=== PATIENT | male | born 1950 | race Caucasian/White ===

== ENCOUNTER → 2017-01-26 | Outpatient (CLI) | payer OTHER | LOC: BMCIMAGING 14:52 | PROVIDERS: ATTEND Family Medicine | DX: R05 Cough (principal); Z87.891 Personal history of nicotine dependence ==

== ENCOUNTER 2018-01-29 01:56 | Inpatient (IN) | payer OTHER ==
[2018-01-29] MEDS ORDERED: NS 1,000 ML IV ONE (02:09)
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
[2018-01-29] MEDS ORDERED: ONDANSETRON 4 MG/2 ML VIAL IVP ONE (02:12)
[2018-01-29] MEDS ORDERED: HYDROmorphONE/DILAUDID 2 MG/ML INJ IVP ONE ×2 (02:12→03:42)
[2018-01-29 02:26] LABS: PLATELET COUNT 251 10^3/uL (150-400)
[2018-01-29 02:35] LABS: INR 1.02 (0.83-1.16); PROTIME(PATIENT) 13.6 SEC (12.0-15.0)
[2018-01-29] MEDS ORDERED: IOPAMIDOL (ISOVUE-300) 100 ML BTL ONE ×2 (03:07→11:46)
[2018-01-29] MEDS ORDERED: ACETAMINOPHEN 325 MG TAB PO PRN (04:12)
[2018-01-29] MEDS ORDERED: LORazepam 2 MG/ML INJ IVP PRN (04:12)
[2018-01-29] MEDS ORDERED: HYDROCODONE/APAP 5/325 TAB PO PRN (04:12)
[2018-01-29] MEDS ORDERED: ONDANSETRON 4 MG/2 ML VIAL IVP PRN ×2 (04:12→15:36)
[2018-01-29] MEDS ORDERED: NS 1,000 ML IV SCH ×3 (04:15→13:15)
[2018-01-29] MEDS ORDERED: LORazepam 2 MG/ML INJ IVP ONE (05:56)
[2018-01-29] MEDS ORDERED: fentaNYL 100 MCG/2 ML INJ IVP ONE (05:56)
--- NOTE | 2018-01-29 07:37 | PDGENHP ---
History and Physical - Chief Complaint Left-sided abdominal pain - History of Present Illness Source-patient provides history appears reliable. His and [id number] at bedside supplement details. EMR was reviewed and case discussed with ED provider. HPI - this is a very pleasant 67-year-old gentleman who is generally in excellent health with a remote history of melanoma the degenerative disc disease in the lumbar spine who presents to the emergency department today with complaints of sudden onset left lower abdominal pain that will come from sleep. Patient describes pain as cramping constant. Nothing made his pain better or worse at home until he came to the emergency department and received a dose of Dilaudid. Patient's has also noted a little bit of abdominal distension. He has not had any drastic weight loss but reports that over the last several years he has had on expected weight loss. Patient has not had any decline in appetite or changes in bowel or bladder function. He chronically has increased frequency related to history of BPH and reports that he frequently feels like he does not empty his bladder entirely. Patient notes he had a recent upper respiratory CIS syndrome with rhinorrhea congestion and cough which has been improving. He denies any fevers chills or night sweats. History Information - Allergies/Home Medication List Allergies/Adverse Reactions: No Known Allergies Allergy (Unverified 01/29/18 02:04) Home Medications: NK [No Known Home Meds] 01/29/18 [Last Taken Unknown] I have personally reviewed and updated: family history, medical history, social history, surgical history - Past Medical History Additional medical history: History of melanoma on his back resected 1999. Patient reports he had multiple lymph node biopsies some of which were positive. He did not require treatment with chemotherapy. - Surgical History Additional surgical history: #Right shoulder surgery 2016. #Melanoma resection and lymph node biopsies on the back. #Prostate resection. Patient notes "placement of seeds to shrink vessels" unclear if this was embolization. Patient is not make notation of any history of prostate cancer. - Family History Additional family history: Father- related to colon cancer. Mother history of breast cancer - Social History Smoking Status: Never smoked Alcohol Use: Other (Patient reports drinking several drinks on a daily basis.) Drug Use: Marijuana (Daily use) Additional social history: Patient is and lives with his . 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 Cor status-full. Review of Systems Review of Systems: ROS: 10pt was reviewed & negative except for what was stated in HPI & below Constitutional: Reports: weight loss (Slow steady weight loss over the last several years. ). Denies: chills, fever, malaise EENMT: Reports: nose congestion. Denies: blurred vision, sore throat Cardiac: Reports: no symptoms Respiratory: Reports: cough. Denies: shortness of breath Gastrointestinal: Reports: abdominal pain (See HPI), abdominal distention, nausea. Denies: vomitting, diarrhea Genitourinary: Denies: burning, flank pain, hematuria, incontinence Muscolosketal: Reports: back pain (Chronic low back pain), joint pain Neurological: Reports: headache (Intermittent). Denies: numbness, tingling Hematologic/Lymphatic: Reports: no symptoms Physical Exam Physical Exam: Selected Entries 01/29/18 02:05 Blood Pressure Automatic Method Heart Rate 72 Respiratory 98 H Rate Temperature (C) 36.6 C Blood Pressure 156/101 H Mean Arterial 119 H Pressure (MAP) O2 Delivery Room Air Mode Temperature Oral Source Temp Pulse Resp BP Pulse Ox 36.3 C 72 16 168/89 H 93 01/29/18 06:17 01/29/18 06:17 01/29/18 06:17 01/29/18 04:01 01/29/18 06:17 Constitutional: no apparent distress, uncomfortable, other (NAD. Patient lays quietly in bed. Does occasionally cradle is abdomen. Family bedside.) Eyes: PERRL (Decreased reactivity light bilaterally but symmetric.), anicteric sclera, EOMI, No scleral injection Ears, Nose, Mouth, Throat: dry mucous membranes, other (No nasal discharge), No poor dentition Cardiovascular: regular rate and rhythym, no murmur, rub, or gallop, pulses symmetric bilaterally, No edema Peripheral Pulses: 1+: dorsalis-pedis (R), dorsalis-pedis (L) Respiratory: no respiratory distress, no rales or rhonchi, clear to auscultation , No inspiratory crackles, No respiratory distress Gastrointestinal: normoactive bowel sounds, no palpable masses, tenderness ( Left lower quadrant), distension, No guarding, No rebound Genitourinary: no bladder tenderness, No ricketts in urethra Skin: warm, normal color, no rashes or abrasions Musculoskeletal: full muscle strength (Patient able to sit up independently.), other (Slightly antalgic gait) Neurologic: AAOx3, sensation intact bilaterally, other (Nonfocal exam), No facial droop Psychiatric: interacting appropriately, not anxious, not encephalopathic, thought process linear, other (Thought process content and questions are appropriate.) Lab Data & Imaging Review 01/29/18 02:15 01/29/18 02:15 WBC 11.71 10^3/uL (3.80-9.50) H 01/29/18 02:15 RBC 5.05 10^6/uL (4.40-6.38) 01/29/18 02:15 Hgb 15.0 g/dL (13.7-17.5) 01/29/18 02:15 Hct 44.4 % (40.0-51.0) 01/29/18 02:15 MCV 87.9 fL (81.5-99.8) 01/29/18 02:15 MCH 29.7 pg (27.9-34.1) 01/29/18 02:15 MCHC 33.8 g/dL (32.4-36.7) 01/29/18 02:15 RDW 13.6 % (11.5-15.2) 01/29/18 02:15 Plt Count 251 10^3/uL (150-400) 01/29/18 02:15 MPV 10.8 fL (8.7-11.7) 01/29/18 02:15 Neut % (Auto) 52.4 % (39.3-74.2) 01/29/18 02:15 Lymph % (Auto) 39.7 % (15.0-45.0) 01/29/18 02:15 [place] % (Auto) 6.7 % (4.5-13.0) 01/29/18 02:15 Eos % (Auto) 0.7 % (0.6-7.6) 01/29/18 02:15 Baso % (Auto) 0.3 % (0.3-1.7) 01/29/18 02:15 Nucleat RBC Rel Count 0.0 % (0.0-0.2) 01/29/18 02:15 Absolute Neuts (auto) 6.13 10^3/uL (1.70-6.50) 01/29/18 02:15 Absolute Lymphs (auto) 4.65 10^3/uL (1.00-3.00) H 01/29/18 02:15 Absolute Monos (auto) 0.79 10^3/uL (0.30-0.80) 01/29/18 02:15 Absolute Eos (auto) 0.08 10^3/uL (0.03-0.40) 01/29/18 02:15 Absolute Basos (auto) 0.04 10^3/uL (0.02-0.10) 01/29/18 02:15 Absolute Nucleated RBC 0.00 10^3/uL (0-0.01) 01/29/18 02:15 Immature Gran % 0.2 % (0.0-1.1) 01/29/18 02:15 Immature Gran # 0.02 10^3/uL (0.00-0.10) 01/29/18 02:15 PT 13.6 SEC (12.0-15.0) 01/29/18 02:15 INR 1.02 (0.83-1.16) 01/29/18 02:15 APTT 32.5 SEC (23.0-38.0) 01/29/18 02:15 VBG Lactic Acid 0.9 mmol/L (0.7-2.1) 01/29/18 02:10 Sodium 141 mEq/L (135-145) 01/29/18 02:15 Potassium 4.1 mEq/L (3.3-5.0) 01/29/18 02:15 Chloride 106 mEq/L (97-110) 01/29/18 02:15 Carbon Dioxide 26 mEq/l (22-31) 01/29/18 02:15 Anion Gap 9 mEq/L (8-16) 01/29/18 02:15 BUN 20 mg/dL (7-23) 01/29/18 02:15 Creatinine 1.1 mg/dL (0.7-1.3) 01/29/18 02:15 Estimated GFR > 60 01/29/18 02:15 Glucose 122 mg/dL (70-100) H 01/29/18 02:15 Calcium 9.1 mg/dL (8.5-10.4) 01/29/18 02:15 Total Bilirubin 0.4 mg/dL (0.1-1.4) 01/29/18 02:15 Conjugated Bilirubin 0.1 mg/dL (0.0-0.5) 01/29/18 02:15 Unconjugated Bilirubin 0.3 mg/dL (0.0-1.1) 01/29/18 02:15 AST 29 IU/L (17-59) 01/29/18 02:15 ALT 39 IU/L (21-72) 01/29/18 02:15 Alkaline Phosphatase 103 IU/L (38-126) 01/29/18 02:15 Total Protein 6.3 g/dL (6.3-8.2) 01/29/18 02:15 Albumin 3.7 g/dL (3.5-5.0) 01/29/18 02:15 Lipase 312 IU/L (23-300) H 01/29/18 02:15 Urine Color YELLOW 01/29/18 03:38 Urine Appearance CLEAR 01/29/18 03:38 Urine pH 5.0 (5.0-7.5) 01/29/18 03:38 Ur Specific [place] > 1.035 (1.002-1.030) H 01/29/18 03:38 Urine Protein 1+ (NEGATIVE) H 01/29/18 03:38 Urine Ketones 1+ (NEGATIVE) H 01/29/18 03:38 Urine Blood NEGATIVE (NEGATIVE) 01/29/18 03:38 Urine Nitrate NEGATIVE (NEGATIVE) 01/29/18 03:38 Urine Bilirubin NEGATIVE (NEGATIVE) 01/29/18 03:38 Urine Urobilinogen NEGATIVE EU (0.2-1.0) 01/29/18 03:38 Ur Leukocyte Esterase NEGATIVE (NEGATIVE) 01/29/18 03:38 Urine RBC 3-5 /hpf (0-3) H 01/29/18 03:38 Urine WBC 1-3 /hpf (0-3) 01/29/18 03:38 Ur Epithelial Cells NONE SEEN /lpf (NONE-1+) 01/29/18 03:38 Urine Mucus TRACE /lpf (NONE-1+) 01/29/18 03:38 Urine Glucose NEGATIVE (NEGATIVE) 01/29/18 03:38 Imaging Review: ___ CT Scan of the Abdomen and Pelvis (With Contrast) at 0 312 hours History: Left-sided abdominal pain. Prior history of melanoma. Comparison: None Technique: Axial computed tomographic images of the abdomen and pelvis were obtained with the uneventful intravenous administration of 90 mL Isovue 300 contrast. No oral contrast. Additional delayed phase imaging performed. Dose reduction techniques were utilized. CT Abdomen Findings: Lung bases: Minimal dependent atelectasis of the lung bases. Liver: Multiple diffuse hepatic masses with a right lobe anterior segment 27 x 20 mm metastasis image 19 of series 9 with multiple additional diffuse metastasis throughout the right and left lobes of the liver. Biliary System: No Biliary ductal dilation. Spleen: Normal. Pancreas: Normal. Adrenals: Normal. Kidneys: Left kidney didn't demonstrates delayed function and excretion with hydronephrosis dilated renal pelvis and calyces secondary to a renal pelvis solid mass measuring at least 29 x 14 mm in axial dimension and 30 mm in cephalocaudal dimension, image 103 of series 4 likely representing transitional cell carcinoma with hepatic metastasis. There are also multiple posterior left-sided retroperitoneal nodules on images 77 through 103 of series 4 measuring up to 15 mm likely representing perinephric metastasis. 18 x 20 mm cortical lesion off the posterior lateral cortex of the left kidney image 103 of series 4 may also represent renal cell carcinoma or additional retroperitoneal metastasis. Right kidney demonstrates no hydronephrosis or solid masses. However there are right-sided perinephric nodules also noted on images 116 through 127 of series 4. Abdominal Aorta: Moderate atherosclerotic aorta and iliac arteries without aneurysm. Right-sided aortocaval retroperitoneal lymph node measuring 15 x 13 mm on image 144 series 4 probably representing metastasis. Peritoneal nodule on image 124 series 4 also suspicious for peritoneal carcinomatosis. Additional smaller nodules identified in the mesentery also on images 162 of series 4.. No bowel obstruction or ascites. No pneumoperitoneum. CT Pelvis Findings: No distal ureteral calculi. Prostate is mildly enlarged measuring 50 x 48 mm. Small bilateral hydroceles. Severe degenerative disease lumbar spine L2-L3, L3-L4 and L5-S1 with disk space narrowing and osteophytes. This results in at least moderate to severe central canal stenosis most prominent at L4 -L5. However no definite osseous metastasis. L4-L5 severe bilateral facet arthropathy. Impression: 1. Multiple hepatic metastasis. Possible melanoma metastasis versus transitional cell carcinoma. 2. Left renal pelvis solid mass suspicious for transitional cell carcinoma versus melanoma metastasis near the left renal pelvis resulting in left hydronephrosis. Moderate left hydronephrosis. 3. Multiple bilateral perinephric retroperitoneal nodules, a few para-aortic lymph nodes, and a few mesenteric lymph nodes consistent with additional metastatic adenopathy. 4. Degenerative lumbar spine without definite osseous metastasis. 5. Atherosclerotic aorta without aneurysm. 6. Small bilateral hydroceles Findings and recommendations discussed with Emergency Department physician, Oscar Holguin MD at 0 345 hour, 01/29/2018. Final report concurs with initial preliminary interpretation. Testicular Sonogram Clinical Indications: Hepatic metastasis. Melanoma. Hydroceles on CT. Comparison: CT abdomen and pelvis from today. Technique: Scrotal contents were imaged with the high-resolution transducer. Color and pulsed Doppler/duplex were recorded on each side. Findings: Right testis measures 4.1 x 2.3 x 2.9 CM and left testis measures 3.7 x 2.4 x 3.1 cm . Both testes are homogeneous in echogenicity without intratesticular masses. Duplex/Doppler signals are normal, without evidence of torsion or inflammation. No epididymal enlargement. Right epididymal head benign 1.1 x 1.1 cm simple cyst. Small bilateral hydroceles. Impression: 1. No intratesticular masses. 2. Small bilateral hydroceles. 3. Right epididymal head benign 1.2 cm cyst. Findings and recommendations discussed with Emergency Department physician, Oscar Holguin MD at 0 4:30 hour, 01/29/2018. Final report concurs with initial preliminary interpretation. Dictated By: Joseph Joyce Visualized and Interpreted imaging results: Yes Assessment & Plan Assessment: Pleasant 67-year-old gentleman with the history complaints of sudden onset left lower quadrant abdominal pain #Left renal mass with liver Mets - imaging findings were discussed with patient and his family. Reviewed the concerns for primary urologic versus melanoma related malignancy. Plan for further imaging evaluation with CT contrast head and chest. Further discussion with IR for consideration of liver biopsy of metastatic disease as per day team. Oncology consultation once pathology is available. # left hydronephrosis - due to obstruction from renal mass. Patient may require the consideration for nephrostomy tubes. Renal function at this time is intact. #Abdominal pain (Acute) - secondary to renal obstruction and hydronephrosis. P.r.n. Morphine and Ativan. # elevated blood pressures without history of hypertension - likely contributing factors including pain and stress with recent diagnosis. P.r.n. Metoprolol if still elevated after pain is treated. # remote history of melanoma FEN - IV fluids while patient is NPO for possible biopsy. Electrolytes adequate did not require replacement. PPX - SCDs. Holding anticoagulation in anticipation of procedure. Cor status-full Disposition-patient admitted inpatient status on the medical floor for additional testing, studies and evaluation of metastatic disease.
[2018-01-29] MEDS: METOPROLOL TARTRATE 5 MG/5 ML INJ IVP PRN ×2 (08:45→16:23)
--- NOTE | 2018-01-29 08:48 | PDMN ---
Medical Necessity Medical necessity: MCG M05 Abdominal Pain: 67 y/o with abd pain and distention. Scans show left renal mass with liver Mets - primary urologic versus melanoma related malignancy. Plan for further imaging evaluation with CT contrast head and chest. IR consult for poss liver biopsy of metastatic diseaseconsultation Onc consult pending. Left hydronephrosis - due to obstruction from renal mass. Patient may require nephrostomy tubes. Abdominal pain (Acute) - secondary to renal obstruction and hydronephrosis. IV opioids started. New HTN noted. NPO for now, IV fluids required. Disposition-patient admitted inpatient status for additional testing, studies and evaluation of metastatic disease.
--- NOTE | 2018-01-29 09:15 | HOSPPROG ---
Hospitalist Progress Note Assessment/Plan: 67-year-old male with the h/o melanoma s/p resection in 1999 with positive lymph nodes at that time admitted with left lower quadrant abdominal pain. 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 -IR to perform us guided biopsy of liver mets on Wednesday (as outpt if d/c'd before then or inpt if still here), discussed with Dr. Tomlinson -await pathology, will need oncology consult # left hydronephrosis - due to obstruction from renal mass. Creatinine normal, significant pain. -urology consulted, Dr. Hollins to place ureteral stent today, cont NPO status #Abdominal pain (Acute) - secondary to renal obstruction and hydronephrosis. -pain control with norco, prn dilaudid # elevated blood pressures without history of hypertension - likely hastened by pain -pain control -prn metoprolol # remote history of melanoma - positive lymph nodes at time of resection in 1999 FEN - NPO, IVF's PPX - SCDs. Holding anticoagulation in anticipation of procedure. Cor status-full Disposition- cont inpt Subjective: Pt reports 10/10 pain, this decreased to 4/10 after IV morphine. No fevers/chills. No N/V. No CP or SOB. He is anxious to have ureteral stent placed for comfort. Objective: Vital Signs Temp Pulse Resp BP Pulse Ox 36.3 C 82 19 197/104 H 94 01/29/18 06:17 01/29/18 08:45 01/29/18 08:41 01/29/18 08:45 01/29/18 08:41 01/28/18 01/29/18 01/30/18 05:59 05:59 05:59 Intake Total 1000 Balance 1000 PT 13.6 SEC (12.0-15.0) 01/29/18 02:15 INR 1.02 (0.83-1.16) 01/29/18 02:15 - Physical Exam Constitutional: no apparent distress Eyes: PERRL Ears, Nose, Mouth, Throat: moist mucous membranes Cardiovascular: regular rate and rhythym Respiratory: no respiratory distress Gastrointestinal: normoactive bowel sounds, other (soft, nd, +left sided TTP without r/r/g, +BS, +left CVA tenderness) Skin: warm Musculoskeletal: full muscle strength Neurologic: AAOx3 Psychiatric: interacting appropriately ICD10 Worksheet Patient Problems: Problems Problem Status Onset Abdominal pain Acute
[2018-01-29] MEDS ORDERED: HYDROmorphONE/DILAUDID 1 MG/ML INJ IVP PRN ×2 (09:16→15:36)
[2018-01-29] MEDS ORDERED: HYDROmorphone HCL 0.5 MG/0.5 ML SYR IVP PRN (09:30)
[2018-01-29] MEDS ORDERED: fentaNYL 100 MCG/2 ML INJ IVP PRN ×2 (13:05→16:06)
[2018-01-29] MEDS ORDERED: MEPERIDINE 25 MG/ML SYR IVP PRN (13:05)
[2018-01-29] MEDS ORDERED: HEPARIN 10,000 UNIT/10 ML MDV (1,000 UNIT/ML) IVP PRN (13:05)
[2018-01-29] MEDS ORDERED: PROTAMINE SULFATE 50 MG/5 ML VIAL IVP PRN (13:05)
[2018-01-29] MEDS ORDERED: GLUCAGON HCL 1 MG VIAL IVP PRN (13:05)
[2018-01-29] MEDS ORDERED: FLUMAZENIL 0.5 MG/5 ML MDV IVP PRN (13:05)
[2018-01-29] MEDS ORDERED: MIDAZOLAM 2 MG/2 ML VIAL IVP PRN (13:05)
[2018-01-29] MEDS ORDERED: NALOXONE HCL 0.4 MG/ML INJ IVP PRN ×2 (13:05→15:36)
[2018-01-29] MEDS ORDERED: ALTEPLASE 2 MG VIAL IVP PRN (13:05)
[2018-01-29] MEDS ORDERED: LIDOCAINE 1% 300 MG/30 ML SDV ONE (13:31)
[2018-01-29] MEDS ORDERED: IOPAMIDOL (ISOVUE-M 300) 15 ML VIAL ONE (13:33)
[2018-01-29] MEDS ORDERED: LIDOCAINE 2% JELLY 20 ML (UROJECT) ONE (13:33)
[2018-01-29] MEDS ORDERED: MIDAZOLAM 2 MG/2 ML VIAL IVP ONE (13:48)
--- NOTE | 2018-01-29 13:48 | PDANEPAE ---
ANE History of Present Illness 67 year old for ureteral stent ANE Past Medical History - Pulmonary History Hx Oxygen in Use at Home: No Hx Sleep Apnea: No Sleep Apnea Screening Result - Last Documented: Negative - Endocrine History Hx Diabetes: No - Cancer History Hx Cancer: Yes Cancer History Comment: hx of melenoma ANE Review of Systems Review of systems is: negative Review of Systems: ANE Patient History - Allergies Allergies/Adverse Reactions: No Known Allergies Allergy (Verified 01/29/18 10:37) - Home Medications Home medications: none Home Medications: Diazepam [Valium 5 MG (*)] 5 mg PO DAILY PRN 01/29/18 [Last Taken 01/22/18] Ibuprofen [Motrin (*)] 200 mg PO BID PRN 01/29/18 [Last Taken 01/28/18] Multivitamins [Multivitamin (*)] 1 each PO DAILY 01/29/18 [Last Taken 01/28/18] - NPO status NPO Since - Liquids (Date): 01/29/18 NPO Since - Liquids (Time): 00:00 NPO Since - Solids (Date): 01/29/18 NPO Since - Solids (Time): 00:00 - Anes Hx Anes Hx: no prior problems - Smoking Hx Smoking Status: Never smoked Marijuana use: Yes - Alcohol Use Alcohol Use: Other ANE Labs/Vital Signs - Labs Result Diagrams: 01/29/18 02:15 01/29/18 02:15 - Vital Signs Blood Pressure: 175/93 Heart Rate: 77 Respiratory Rate: 16 O2 Sat (%): 95 Height: 175.26 cm Weight: 79.379 kg
[2018-01-29] MEDS ORDERED: MIDAZOLAM 2 MG/2 ML VIAL ONE (13:51)
--- NOTE | 2018-01-29 14:02 | PDCONSULT ---
Coding Tech Note: [facility] left ureteral obstruction Consult requested by: Dr. Evette Keating HPI 67M presented to ER w left flank pain. Very excruciating. Pain more in the left lower quadrant than flank though. Hx melanoma. No nausea, emesis, blood in urine. CT abd/pel w con obtained and images personally reviewed- left hydronephrosis due to proximal ureteral obstruction. The ureteral obstruction appears to me more from external compression around the renal pelvis although could be from ureteral/pelvic mass, although this his less convincing on CT to me. Liver lesions suggesting metastasis. Retroperitoneal adenopathy. Past Medical History: History of melanoma. Past Surgical History: Denies significant surgical history Social History: Marijuana use, alcohol use. Denies illicit drugs. Family History: Noncontributory ROS REVIEW OF SYSTEMS: 10 Systems were reviewed and negative with the exception of the elements mentioned in the history of present illness. PE AFVSS Gen NAD A*O CV regular Lungs Normal effort Abd soft, NTTP CVA: no left flank tenderness Ext warm Labs UA 3-5RBC no Nit, no leuks A/P Left ureteral obs ?external compression vs internal mass. TO the OR for left RGP, possible left diagnostic URS w bx, left stent. Rocephin abx. Discussed benefits, risks. Risks including bleeding, infection, pain from stent , pain from procedure, injury to urethral, bladder, ureter, surrounding tissues , need for subsequent procedures. He understood and agreed to proceed. Alesha Gaxiola MD [facility]
[2018-01-29] MEDS ORDERED: fentaNYL 100 MCG/2 ML INJ ONE ×2 (14:06→15:33)
[2018-01-29] MEDS ORDERED: PROPOFOL 200 MG/20 ML VIAL ONE (14:07)
--- NOTE | 2018-01-29 15:08 | POSTOPPROG ---
Post Op Note Date of Operation: 01/29/18 Surgeon: Alesha Gaxiola Anesthesiologist: Warm Anesthesia: LMA Pre-op Diagnosis: left ureteral obstruction, hydro, pain, possible renal pelvis mass Post-op Diagnosis: left ureteral obstruction, hydro, pain, NO renal/ureteral mass Indication: left hydro, pain Procedure: cysto, BLE RGP, L stent, intraoperative fluor Findings: left ureteral obs, NO filling defects on RGP Inf/Abcess present in the surg proc area at time of surgery?: No Depth: Organ Space () EBL: Minimal Complications: None, pt tolerated procedure well
[2018-01-29] MEDS: fentaNYL 100 MCG/2 ML INJ IVP PRN ×2 (15:35→16:01)
--- NOTE | 2018-01-29 15:35 | ASMTCMCOM ---
CM Note CM Note Notes: Pt wa admitted with L ureteral obstruction. He is s/p a cystoscopy. He lives with his in [place]. Anticipate d/c with no CM needs but will continue to follow for any change in needs. D/C plan: Anticipate home independent Date Signed: 01/29/2018 03:34 PM Electronically Signed By:LUIS Fulton
[2018-01-29] MEDS ORDERED: PROMETHAZINE HCL 25 MG/ML INJ IVP PRN (15:36)
--- NOTE | 2018-01-29 15:38 | POSTANESTH ---
Post Anesthetic Evaluation Cardiovascular Status: Normal, Stable, Other, See Comment Respiratory Status: Other, See Comment Level of Consciousness/Mental Status: Can Participate in Eval Pain Control: Adequate, Prn Tx Ordered Nausea/Vomiting Control: Adequate, Prn Tx Ordered Complications Possibly Related to Anesthesia: None Noted
[2018-01-29] MEDS ORDERED: HYDROmorphONE/DILAUDID 2 MG/ML INJ ONE (16:04)
[2018-01-29] MEDS ORDERED: METOPROLOL TARTRATE 5 MG/5 ML INJ ONE ×2 (16:17→16:39)
[2018-01-29] MEDS ORDERED: HYDROmorphONE/DILAUDID 2 MG/ML INJ IVP PRN (16:30)
[2018-01-29] MEDS ORDERED: hydrALAZINE 20 MG/ML VIAL IVP PRN (16:44)
[2018-01-29] MEDS ORDERED: METOPROLOL TARTRATE 5 MG/5 ML INJ IVP ONE (16:45)
[2018-01-29] MEDS ORDERED: hydrALAZINE 25 MG TAB PO PRN (16:55)
[2018-01-29] MEDS ORDERED: LABETALOL HCL 5 MG/ML 20 ML MDV IVP PRN (16:56)
--- NOTE | 2018-01-29 17:29 | GOP ---
DATE OF OPERATION: 01/29/2018 SURGEON: Alesha Gaxiola MD ANESTHESIA: LMA. ANESTHESIOLOGIST: Dr. Aguilar. PREOPERATIVE DIAGNOSIS: Left ureteral obstruction, hydronephrosis, pain, and possible left renal pelvis mass. POSTOPERATIVE DIAGNOSIS: Left ureteral obstruction, hydronephrosis, pain, no renal or ureteral mass. PROCEDURE PERFORMED: Cystoscopy, bilateral retrograde pyelogram, left ureteral stent placement, intraoperative fluoroscopy. FINDINGS: Left ureteral obstruction on retrograde pyelogram with hydronephrotic left renal pelvis and collecting system but no filling defects. Thus, no renal pelvis mass was seen. ESTIMATED BLOOD LOSS: Minimal. INDICATIONS: Left hydronephrosis and pain. DESCRIPTION OF PROCEDURE: The patient was taken back to the cystoscopy suite and placed on the cystoscopy table in a supine position. General anesthesia induced without complication. Time-out performed and core measures satisfied including placement of a Gaurav Hugger, SCDs, and administration of 2 g of Rocephin. He was brought to the end of the table and placed in a dorsal lithotomy position. All pressure points padded. Genitalia draped and prepped in the standard surgical fashion with Betadine. A rigid cystoscope easily cannulated the urethral meatus and was advanced atraumatically into the bladder. Leiva cystoscopy was performed. The right and left ureteral orifices were in their expected anatomical position. There were no bladder abnormalities. No lesions, cellules, trabeculations, masses, or concerns in the bladder. He did have a small prominent central zone of his prostate. The left ureteral orifice was identified, and using a cone-tipped catheter, retrograde pyelogram performed. The distal and mid ureter were normal caliber, and there was a pencil-thin caliber of ureter proximally where the obstruction was seen that led into hydronephrosis. This hydronephrosis was in the renal pelvis and in the calices. There was absolutely no filling defect in the left upper collecting system. I took several pictures and saved these for the system. The obstruction of this ureter is external compression from either mass or lymph nodes, perirenal lymph nodes. I at this point did not feel the need to do any biopsy on the left side, again as my retrograde confirmed external compression causing obstruction. I did remove that cone tip from the distal end of the ureter and then looked at the right ureter and did a retrograde on the right, and that right-sided collecting system was completely normal with a delicate ureter all the way and delicate renal pelvis and calices that were sharp. At this point, I then refocused my attention on the left collecting system. I advanced a wire into the left ureteral orifice up in the left collecting system and placed a 6-Tajik multivariable stent without difficulty. There was a curl in the left collecting system as well as a nice curl in the bladder. Of note, on that retrograde pyelogram, I will add that the renal pelvis did not drain, and there was still contrast in it from the earlier CT scan. At this point, his bladder was drained. The scope was removed , and lidocaine jelly was placed per urethra. He was awakened from anesthesia and transferred to PACU in good condition. COMPLICATIONS: None. The patient presented to the emergency department early this morning with left- sided flank pain. He had a CT scan demonstrating left proximal ureteral obstruction with left hydronephrosis. The CT appeared to me to have external compression from a mass. He also had multiple retroperitoneal lymphadenopathy as well as liver lesions suspicious for metastatic disease. I did not feel that the renal pelvis had appeared to have tumor in it, but the radiologist read it as possible renal pelvis tumor. Thus, I decided to bring him back to the operating room today for bilateral retrograde pyelograms and evaluation of whether there is a mass there and possible biopsy. I also would place a stent, given the obstruction and hydronephrosis. He does have a history of melanoma. He is a past smoker. I went over the rationale, risks, and benefits of the procedure, and he agreed to proceed. /[id number]/MODL MTDD
[2018-01-29] MEDS ORDERED: LORazepam 1 MG TAB PO ONE (20:05)
[2018-01-30] MEDS ORDERED: IOPAMIDOL (ISOVUE-300) 100 ML BTL ONE (08:07)
[2018-01-30 09:13] VITALS: BP 167/91
--- NOTE | 2018-01-30 10:08 | ASMTLACE ---
LACE Length of stay for Answers: 1 day current admission Acuity / Level of Answers: Yes Care: Did the patient have an inpatient admission? Comorbidities - select Answers: Other Notes: hx melanoma all that apply # of Emergency department Answers: 1-2 visits in the last 6 months Score: 6 Date Signed: 01/30/2018 10:08 AM Electronically Signed By:Denisse Alvarez RN
--- NOTE | 2018-01-30 10:16 | ASMTCMCOM ---
CM Note CM Note Notes: Chart reviewed for discharge planning needs, 67 year old male admitted via ED with c/o flank pain. He is s/p ureteral stenting. He has been cleared by hospital medicine to discharge today and is to return for outpatient liver biopsy. No needs identified at this time. CM available should needs arise. Plan: Home independentley with family. Date Signed: 01/30/2018 10:15 AM Electronically Signed By:Denisse Alvarez RN
--- NOTE | 2018-01-30 13:57 | GDS ---
DISCHARGE DIAGNOSES: 1. Left renal pelvis mass with evidence of liver metastases. 2. Left hydronephrosis, secondary to obstruction, status post ureteral stent placement. 3. Hypertension. 4. History of melanoma resected in 1999. 5. Pulmonary nodules suspicious for metastatic disease. 6. Suspected left adrenal metastatic lesion. 7. Coronary artery disease by CT scan in the left anterior descending and right coronary artery wall floor. CONSULTANTS: Dr. Alesha Gaxiola, Urology. HISTORY OF PRESENT ILLNESS: For of details, please see history and physical dated January 29, 2018 . In brief, the patient is a 67-year-old male with a history of a remote melanoma excised in 1999, a t which time he apparently had positive lymph nodes. He did not receive chemotherapy at that time. He presented to the emergency department with left-sided abdominal pain and CT of his abdomen pelvis revealed left renal pelvis mass suspicious for transitional cell carcinoma versus melanoma with evide nce of metastatic disease in the liver with evidence of multiple hepatic metastases. In addition, th ere are multiple bilateral perinephric retroperitoneal nodules and a few mesenteric lymph nodes dennis rning for metastatic adenopathy. An atherosclerotic aorta without aneurysm is noted, as well as dege nerative lumbar spine, small bilateral hydroceles. He was admitted to the hospital for pain control and further workup. HOSPITAL COURSE: Patient was admitted to the med/surgical unit. He underwent ureteral stent placeme nt with significant improvement in his pain and relief of his hydronephrosis. The case was discussed with Interventional Radiology, planning for a hepatic biopsy of what appear to be multiple hepatic m etastases. This will be performed on Wednesday as an outpatient. The patient is aware he should be n.p .o. and the instructional technologist will communicate with him Wednesday morning regarding time of the pr ocedure. He did also undergo head CT and chest CT. His head CT was negative for metastases. His est CT did show a couple of nonspecific subpleural noncalcified nodules seen on the right, which coul d be metastatic in etiology. In addition, there is suspected left adrenal metastatic involvement wit h right and left perinephric nodularity and left upper quadrant nodularity, as well as widespread hep atic metastatic disease, nonspecific mild right hilar and subcarinal lymph node prominence, and bilat eral areas of discoid subsegmental atelectasis versus linear. There is also noted atherosclerotic ca lcification of the left anterior descending and RCA and outpatient followup is recommended. The patient did have significantly elevated blood pressures as high as 212/109 postprocedure. He req uired IV beta blockers and p.r.n. hydralazine doses. He was then started on oral Norvasc and his blo od pressures have improved. He will be discharged on a low dose of oral Norvasc with close attention to his blood pressure. It is suspected that pain and anxiety are contributory factors to his hypert ension. He understands that a tissue diagnosis is needed and he will arrange a followup appointment with Dr. Bai in 1 week to review pathology and treatment options. Dr. Bai was his oncologist for his melanoma care back in 1999. DISPOSITION: Patient is discharged home in stable condition. FOLLOWUP: 1. Dr. Claudia Tomlinson interventional Radiology, Wednesday, January 31 for hepatic biopsy. 2. Dr. Stu Bai, Oncology, for followup on pathology and treatment options. 3. Dr. Carol Morris, primary care. DISCHARGE MEDICATIONS: Please see [facility] for completed outpatient medication list. New medication s on discharge, include Norvasc 2.5 mg p.o. daily #30 no refills, [place] 5/325 mg 1-2 tablets p.o. q.4 hours p.r.n. #30 no refills, lorazepam 0.5 mg p.o. q.h.s. p.r.n. #20 no refills. He will continue a ll other outpatient medications as previously prescribed. We discussed that he will discontinue his Valium, which is not a regular medication. /[id number]/MODL
== END 2018-01-30 10:58 | disposition home or self-care (01) | DRG 687 ==
LOC: OBSVTOIN 04:15 → F1N 06:11
PROVIDERS: ADMIT Family Medicine; ATTEND Family Medicine
PROC: 0T774DZ Dilation of Left Ureter with Intraluminal Device, Percutaneous Endoscopic Approach (ICD-10-PCS; principal; 2018-01-29 13:30)
DX: C64.2 Malignant neoplasm of left kidney, except renal pelvis (principal); C78.7 Secondary malignant neoplasm of liver and intrahepatic bile duct; C79.72 Secondary malignant neoplasm of left adrenal gland; C78.00 Secondary malignant neoplasm of unspecified lung; N13.1 Hydronephrosis with ureteral stricture, not elsewhere classified; I10 Essential (primary) hypertension; I25.10 Atherosclerotic heart disease of native coronary artery without angina pectoris; I70.0 Atherosclerosis of aorta; M51.36 Other intervertebral disc degeneration, lumbar region; N43.3 Hydrocele, unspecified; Z85.820 Personal history of malignant melanoma of skin
CPT/HCPCS: 96374; C1758; C1769; C2625; J0696; J1170; J2060; J2250; J2270; J2405; J2704; J3010; Q9967

== ENCOUNTER 2018-01-31 13:06 | Outpatient (CLI) | payer OTHER ==
[2018-01-31] MEDS ORDERED: LIDOCAINE 1% 300 MG/30 ML SDV ONE (13:52)
[2018-01-31] MEDS ORDERED: ALTEPLASE 2 MG VIAL IVP PRN (14:27)
[2018-01-31] MEDS ORDERED: NALOXONE HCL 0.4 MG/ML INJ IVP PRN (14:27)
[2018-01-31] MEDS ORDERED: FLUMAZENIL 0.5 MG/5 ML MDV IVP PRN (14:27)
[2018-01-31] MEDS ORDERED: MIDAZOLAM 2 MG/2 ML VIAL IVP PRN (14:27)
[2018-01-31] MEDS ORDERED: fentaNYL 100 MCG/2 ML INJ IVP PRN (14:27)
[2018-01-31] MEDS ORDERED: NS 1,000 ML IV SCH (14:30)
[2018-01-31] MEDS ORDERED: MIDAZOLAM 2 MG/2 ML VIAL ONE ×2 (14:30→14:31)
[2018-01-31] MEDS ORDERED: fentaNYL 100 MCG/2 ML INJ ONE (14:30)
[2018-01-31] MEDS ORDERED: oxyCODONE IR 5 MG TAB PO PRN (16:17)
[2018-01-31] MEDS ORDERED: ONDANSETRON 4 MG/2 ML VIAL IVP PRN (16:17)
[2018-01-31 19:18] VITALS: BP 140/75
== END 2018-01-31 19:20 | disposition home or self-care (01) ==
LOC: FIMAGING 13:06
PROVIDERS: ATTEND Internal Medicine Hematology & Oncology
PROC: 0FB03ZX Excision of Liver, Percutaneous Approach, Diagnostic (ICD-10-PCS; principal; 2018-01-31)
DX: C78.7 Secondary malignant neoplasm of liver and intrahepatic bile duct (principal); Z85.820 Personal history of malignant melanoma of skin
CPT/HCPCS: 47000; 76942; 88307; 88333; 88341; 88342; J2250; J3010

== ENCOUNTER → 2018-02-18 | Outpatient (CLI) | payer OTHER ==
[~2018-02-18] MED LIST: GADOBUTROL 10 ML VIAL IVP ONE
== END ==
LOC: FIMAGING 10:48
PROVIDERS: ATTEND Internal Medicine Hematology & Oncology
DX: Z12.89 Encounter for screening for malignant neoplasm of other sites (principal); C43.60 Malignant melanoma of unspecified upper limb, including shoulder
CPT/HCPCS: 70553; A9585

== ENCOUNTER → 2018-02-23 | Outpatient (CLI) | payer OTHER | LOC: BHFA 14:00 | PROVIDERS: ATTEND Internal Medicine Cardiovascular Disease | DX: Z51.11 Encounter for antineoplastic chemotherapy (principal) ==

== ENCOUNTER → 2018-02-24 | Outpatient (CLI) | payer OTHER ==
[~2018-02-24] MED LIST changes: -GADOBUTROL 10 ML VIAL IVP ONE; +IOPAMIDOL (ISOVUE-300) 100 ML BTL ONE
== END ==
LOC: FIMAGING 10:03
PROVIDERS: ATTEND Internal Medicine Hematology & Oncology
DX: C43.9 Malignant melanoma of skin, unspecified (principal)
CPT/HCPCS: 70491; Q9967

== ENCOUNTER 2018-04-28 12:59 | Observation (INO) | payer OTHER ==
[2018-04-28] MEDS ORDERED: LIDOCAINE 2% JELLY 20 ML (UROJECT) ONE (14:11)
[2018-04-28] MEDS ORDERED: OPIUM/BELLADONNA ALKALO SUPP PR ONE (14:12)
[2018-04-28] MEDS ORDERED: IOPAMIDOL (ISOVUE-M 300) 15 ML VIAL ONE (14:12)
[2018-04-28] MEDS ORDERED: MIDAZOLAM 2 MG/2 ML VIAL ONE (14:28)
[2018-04-28] MEDS ORDERED: PROPOFOL 200 MG/20 ML VIAL ONE ×3 (14:30→16:34)
[2018-04-28] MEDS ORDERED: fentaNYL 100 MCG/2 ML INJ ONE ×4 (14:30→18:57)
[2018-04-28] MEDS ORDERED: MIDAZOLAM 2 MG/2 ML VIAL IVP ONE (14:33)
[2018-04-28] MEDS ORDERED: ceFAZolin 2 GM in D5W 100 ML IV ONE (14:34)
[2018-04-28] MEDS ORDERED: OPIUM/BELLADONNA ALKALO SUPP PR PRN (14:34)
--- NOTE | 2018-04-28 14:35 | PDANEPAE ---
ANE History of Present Illness ureteral stent ANE Past Medical History - Cardiovascular History Hx Hypertension: Yes Hx Arrhythmias: No Hx Chest Pain: No Hx Coronary Artery / Peripheral Vascular Disease: No Hx CHF / Valvular Disease: No Hx Palpitations: No - Pulmonary History Hx COPD: No Hx Asthma/Reactive Airway Disease: No Hx Recent Upper Respiratory Infection: No Hx Oxygen in Use at Home: No Hx Sleep Apnea: No - Endocrine History Hx Diabetes: No Obesity: no - Cancer History Hx Cancer: Yes Cancer History Comment: hx of melenoma - Chronic Pain History Chronic Pain: No - Surgical History Prior Surgeries: ureteral stents 01/29/18 ANE Review of Systems Review of systems is: negative Review of Systems: - Exercise capacity Exercise capacity: >=4 METS ANE Patient History - Allergies Allergies/Adverse Reactions: No Known Allergies Allergy (Verified 01/29/18 10:37) - Home Medications Home medications: home medication list seen and reviewed Home Medications: Ibuprofen [Motrin (*)] 200 mg PO BID PRN 01/29/18 [Last Taken 1 Day Ago ~] Multivitamins [Multivitamin (*)] 1 each PO DAILY 01/29/18 [Last Taken 04/28/18] - NPO status NPO Since - Liquids (Date): 04/28/18 NPO Since - Liquids (Time): 12:30 NPO Since - Solids (Date): 04/27/18 NPO Since - Solids (Time): 21:00 - Anes Hx Anes Hx: no prior problems - Smoking Hx Smoking Status: Never smoked ANE Labs/Vital Signs - Vital Signs Blood Pressure: 130/87 Heart Rate: 66 Respiratory Rate: 14 O2 Sat (%): 96 Height: 175.26 cm Weight: 63.503 kg ANE Physical Exam - Airway Neck exam: FROM Mallampati Score: Class 2 Mouth exam: normal dental/mouth exam - Pulmonary Pulmonary: no respiratory distress - Cardiovascular Cardiovascular: regular rate and rhythym - ASA Status ASA Status: II ANE Anesthesia Plan Anesthesia Plan: GA w LMA
--- NOTE | 2018-04-28 14:35 | POSTANESTH ---
Post Anesthetic Evaluation Cardiovascular Status: Normal, Stable Respiratory Status: Normal, Stable Level of Consciousness/Mental Status: Can Participate in Eval, Mildly Sleepy, Arousable Pain Control: Adequate, Prn Tx Ordered Nausea/Vomiting Control: Adequate, Prn Tx Ordered Complications Possibly Related to Anesthesia: None Noted
--- NOTE | 2018-04-28 14:35 | PDHPUP ---
History & Physical Update H&P update statement: This history and physical update is based on an assessment of the patient which was completed after admission or registration (within 24 hours), but prior to the surgery/procedure. H&P update: H&P reviewed & patient examined, no change in patient's condition since H&P completed
[2018-04-28] MEDS ORDERED: ceFAZolin 2 GM/DEXTROSE 100 ML IV ONE (15:00)
--- NOTE | 2018-04-28 16:57 | POSTOPPROG ---
Post Op Note Date of Operation: 04/28/18 Surgeon: Alesha Gaxiola Press Cutter: Oscar Soriano Anesthesia: LMA Pre-op Diagnosis: left hydro managed w stent, met melanoma Post-op Diagnosis: same Indication: left hydro, met melanoma,stent exchange Procedure: cysto,diag ureteroscopy, intra fluoro Findings: unable to remove stent, stent either knoted at renal pelvis or encrusted Inf/Abcess present in the surg proc area at time of surgery?: No EBL: Minimal Complications: None, patient tolerated procedure well Specimen(s): None
[2018-04-28] MEDS ORDERED: IOPAMIDOL (ISOVUE-300) 100 ML BTL ONE (18:18)
--- NOTE | 2018-04-28 18:21 | PDRADPRE ---
Radiology History & Physical Indication for procedure: cancer (Encrusted left JJ ureteral stent unable to be retrieved without risk of ureteral disruption. Consent obtained from for PNCU placement and JJ stent retreival. ) Home medications: Ibuprofen [Motrin (*)] 200 mg PO BID PRN 01/29/18 [Last Taken 1 Day Ago ~] Multivitamins [Multivitamin (*)] 1 each PO DAILY 01/29/18 [Last Taken 04/28/18] Allergies/Adverse Reactions: No Known Allergies Allergy (Verified 01/29/18 10:37) Mental status: other (Anesthesia) Heart exam: regular rate and rhythm Lungs exam: clear to auscultation
--- NOTE | 2018-04-28 18:22 | PDRADPN ---
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 Successful snare of ureteral stent and placement of PNCU. Inf/Abcess present in the surg proc area at time of surgery?: No
[2018-04-28] MEDS ORDERED: PROMETHAZINE HCL 25 MG/ML INJ IVP PRN (18:47)
[2018-04-28] MEDS ORDERED: ALBUTEROL 3 ML DEYVIAL IH PRN (18:47)
[2018-04-28] MEDS ORDERED: NALOXONE HCL 0.4 MG/ML INJ IVP PRN (18:47)
[2018-04-28] MEDS ORDERED: HYDROmorphONE/DILAUDID 2 MG/ML INJ IVP PRN (18:47)
[2018-04-28] MEDS ORDERED: ACETAMINOPHEN 500 MG TAB PO PRN (18:47)
[2018-04-28] MEDS ORDERED: METOCLOPRAMIDE 10 MG/2 ML VIAL IVP PRN (18:47)
[2018-04-28] MEDS ORDERED: HYDROCODONE/APAP 5/325 TAB PO PRN (18:47)
[2018-04-28] MEDS ORDERED: oxyCODONE IR 5 MG TAB PO PRN (18:47)
[2018-04-28] MEDS ORDERED: LR 500 ML IV PRN (18:47)
[2018-04-28] MEDS: fentaNYL 100 MCG/2 ML INJ IVP PRN ×2 (18:59→19:47)
[2018-04-28] MEDS ORDERED: MEPERIDINE 25 MG/0.5 ML AMP ONE ×2 (19:02→19:10)
[2018-04-28] MEDS: MEPERIDINE 25 MG/0.5 ML AMP IVP PRN ×2 (19:04→19:18)
[2018-04-28] MEDS ORDERED: DIAZEPAM 5 MG/ML 1 ML SYR ONE (19:11)
[2018-04-28] MEDS: DIAZEPAM 5 MG/ML 1 ML SYR IVP PRN ×2 (19:14→19:21)
[2018-04-28] MEDS ORDERED: LABETALOL HCL 5 MG/ML 20 ML MDV ONE (20:43)
[2018-04-28] MEDS ORDERED: LABETALOL HCL 5 MG/ML 20 ML MDV IVP PRN (20:47)
[2018-04-28] MEDS ORDERED: HYDROmorphONE/DILAUDID 1 MG/ML INJ IVP PRN (21:18)
[2018-04-28] MEDS ORDERED: ONDANSETRON 4 MG/2 ML VIAL IVP PRN (21:18)
[2018-04-28] MEDS ORDERED: D5W 1/2 NS 1,000 ML IV SCH (21:30)
[2018-04-28] MEDS: CEPHALEXIN 500 MG CAP PO SCH (23:05)
[2018-04-28] MEDS: SENNOSIDES/DOCUSATE SODIUM TAB PO SCH (23:06)
[2018-04-29] MEDS: HYDROCODONE/APAP 5/325 TAB PO PRN ×2 (00:38→06:02)
[2018-04-29] MEDS: CEPHALEXIN 500 MG CAP PO SCH (05:40)
--- NOTE | 2018-04-29 08:28 | GOP ---
DATE OF OPERATION: 04/28/2018 SURGEON: Alesha Gaxiola MD SENIOR PROCUREMENT SPECIALIST: Oscar Soriano MD. ANESTHESIA: LMA. PREOPERATIVE DIAGNOSIS: Left hydronephrosis secondary to external ureteral compression from metastat ic melanoma, hydronephrosis managed with a stent. POSTOPERATIVE DIAGNOSIS: 1. Left hydronephrosis secondary to external ureteral compression from metastatic melanoma, hydronep hrosis managed with a stent. 2. Encrusted stent. PROCEDURE PERFORMED: Cystoscopy, diagnostic ureteroscopy, and intraoperative fluoroscopy. FINDINGS: An encrusted stent, unable to remove the stent due to either a knotted stent in the renal pelvis or encrusted stent that unable to be extracted retrograde. SPECIMENS: None. ESTIMATED BLOOD LOSS: Minimal. INDICATIONS: Left hydronephrosis from external ureteral compression due to metastatic melanoma and l arge lymph nodes and need for stent exchange. This is a patient of mine whom I placed a left-sided ureteral stent back in late January for left-s ided hydronephrosis secondary to enlarged periaortic and renal lymph nodes causing compression on the left proximal ureter leading to the hydronephrosis. He presents today for stent exchange. We discu ssed the benefits of stent exchange as he still does have hydronephrosis seen on a CT scan at [facility] yesterday. I discussed with him, his , and his sister that stent exchanges usually are uneventful, but there are times when the stent is encrusted and unable to be removed due to encrustations. I also discussed that the risks include bleeding, infection, pain, injury to the urethra, the bladder, or the left ureter, as I said inability to remove the stents, need for percutan eous nephrostomy tube if I was unable to remove the stent, and need for subsequent procedures. He un derstood these risks and agreed to proceed. DESCRIPTION OF PROCEDURE: The patient was taken back to the cystoscopy suite, placed on the cystosco py table in the supine position. General anesthesia induced without complication. Time-out performe d, and core measures were satisfied including placement of a Gaurav Hugger, SCDs and administration of Ancef antibiotic. He was brought to the end of the table, placed in dorsal lithotomy position. All pressure points padded. Genitalia draped and prepped in the standard surgical fashion with Betadine. A rigid cystoscope easily cannulated the urethral meatus and was advanced atraumatically into the b ladder. The stent was visualized with the scope. It did appear encrusted, and I then advanced a rig id grasper through the cystoscope to the level of the stent and began to externalize the distal end o f the stent. I was able to externalize it, the distal end of the stent at the penile meatus. I then looked at the lumen of the stent and attempted to pass a wire through the stent, but the lumen of th e stent was encrusted, and I was unable to pass a wire. That was with a 0.035 Glidewire. I then exc hanged the wire out for an Amplatz superstiff wire and still was unable to advance the wire through t he lumen of the stent. At this point, I then kept this stent externalized distally at the urethral m eatus, and I advanced the cystoscope back into the bladder and placed a superstiff wire alongside the stent with fluoroscopic and cystoscopic guidance, and this wire advanced easily up into the left col lecting system. I now then removed my scope leaving the wire in place. Now I had a safety wire in p samia for further assistance. I then readvanced the cystoscope back into the bladder, and then attemp lila to remove the stent, knowing that I had a safety wire securing my access already out, and the brii nt would not move out. I did this under fluoroscopy, and I saw just the ureteropelvic junction being pulled upon, but the stent not moving down as it normally would into the ureter. I looked at the st ent up in the renal pelvis on fluoroscopy, and it looked like it either had a knot in it or it was cu rled upon itself or possibly just severely encrusted leaving it unable to straighten and pull out of the left renal pelvis. So at this point, I knew I had an encrusted stent proximally as well as dista lly, which I could visually see in the bladder, so I called in the laser and felt that I would go eula ngside the stent with a rigid scope and further evaluate the ureteropelvic junction in this manner, a s I did not think I would be again to get an access sheath up to use a flexible scope at this point. I placed a small 12-Tong[place] Guevara catheter to decompress the bladder, and then I was able to advance a rigid ureteroscope through the urethral meatus into the bladder into the left collecting system, an d I advanced it as far as I could go, but the semi-rigid would not advanced far enough for me to eval uate the renal pelvis. So at this point, I knew I would have to do a flexible scope, so I removed th e semi-rigid, then I placed another 0.035 Glidewire, and then attempted to advance the flexible scope over wire again with continued decompression of the bladder with the Guevara catheter. I was able to get the flexible ureteroscope over the wire about to the mid ureter, at which point, I was unable to advance it any further. I was unsure if this was because the stent was encrusted at this point, the scope was not able to advance alongside the stent, but further forcing the scope was not in my mind a dvisable. At this point, I did have my partner Dr. Oscar Soriano in the hospital, and I did scrub out, call jacqueline hair, and ask him to come in and evaluate the situation. He did come in, attempted to do similar to whmarky t I did, which was advanced a flexible scope into the left collecting system, and he also had the jayden e problem with obstruction of advancing about the mid ureter. At this point, we both felt that we we re going to be unable to get our scope up to evaluate the ureteropelvic junction, and to do any furth er treatment to remove the stent at this point, and we would call Interventional Radiology for assist ance in removing the stent antegrade. So at this point, I had a safety wire up, and it was an Amplat z superstiff. I kept this up in the left collecting system. I emptied his bladder. I secured the w flaca externally onto his right thigh with some tape in case Interventional Radiology would like this, and I did go over and talked to Dr. Ben Brewer of IR, told him the situation, and he said he wou ld be happy to take the patient at this moment considering he was still under anesthesia, and see fatmata t he could do in terms of removing the stent and placing either a nephrostomy or nephroureteral stent or an antegrade stent. At this point, the patient was still asleep, he was taken out of lithotomy, the wire was still secure d in place, and he was brought over to Interventional Radiology for further management of that stent that was not able to be removed. The patient did well during the entire procedure. Please see Dr. Livia Brewer's note for further description of his IR procedure. COMPLICATIONS: None. The patient tolerated the procedure well specimens. /[id number]/MODL
[2018-04-29] MEDS: SENNOSIDES/DOCUSATE SODIUM TAB PO SCH (09:00)
[2018-04-29 11:13] VITALS: BP 90/65
== END 2018-04-29 12:32 | disposition home or self-care (01) ==
LOC: FSGY 12:59 → F3E 20:15
PROVIDERS: ADMIT Urology; ATTEND Urology
DX: N13.1 Hydronephrosis with ureteral stricture, not elsewhere classified (principal); C79.9 Secondary malignant neoplasm of unspecified site; C43.9 Malignant melanoma of skin, unspecified
CPT/HCPCS: 50435; 52315; 76001; C1729; C1758; C1769; C1773; C1894; J0690; J1170; J1644; J2175; J2250; J2704; J3010; J3360; Q9967

== ENCOUNTER 2018-05-13 08:44 | Emergency (ER) | payer OTHER ==
[2018-05-13 14:27] VITALS: BP 149/104
--- NOTE | 2018-05-13 14:27 | EDPHY ---
H & P Stated Complaint: Nephrostomy tube may ot be draining properly, snagged last night & leaking Time Seen by Provider: 05/13/18 09:19 HPI/ROS: CHIEF COMPLAINT: Nephroureteral tube not draining HISTORY OF PRESENT ILLNESS: This is a 67-year-old male with a remote history of melanoma who was found to have a tumor encompassing his left ureter in mid January of this year. At that time a ureteral stent was placed. This month, April, an unsuccessful attempt was made to remove the stent, requiring removal via Interventional Radiology. On April 28 the existing ureteral stent was removed and a percutaneous nephroureteral catheter was placed. He had been doing well with this catheter until last night when he caught the catheter tubing on a door knob and pulled it, causing immediate pain at the entry site. He noted blood in the drainage bag initially but had no further output during the night. He has had some drainage on the dressing overlying the catheter's entry site. He has continued to urinate as before. He has not had fever and does not otherwise feel ill. He is undergoing treatment for metastatic melanoma REVIEW OF SYSTEMS: A ten system review of systems was performed and is negative with the exception of the items mentioned in the HPI. Past medical history: 1. Melanoma, metastatic Past surgical history: Left ureteral stent followed by left percutaneous nephro ureteral catheter placement in April 2018. Shoulder surgery. Social history: He lives with his . No tobacco use. He is retired. General Appearance: Alert. Vital signs reviewed. Initial blood pressure 165/ 90. Afebrile. Eyes: Pupils equal and round, no conjunctival injection, no discharge. Anicteric. Respiratory: Lungs are clear to auscultation; no wheezes, rales, or rhonchi. Cardiovascular: Regular rate and rhythm; no murmur, rub, or gallop. Gastrointestinal: Abdomen is soft and nontender, no masses or organomegaly, bowel sounds normal. Skin: Warm and dry, no rashes on exposed skin, normal color. Back: Nephroureteral tubing extending from the entry site on his left flank-- it is clear that the tubing has been dislodged as drainage holes are visible and a stitch has been broken. Minimal tenderness at the entry site. No erythema or warmth. Extremities: No lower extremity edema, no calf tenderness or swelling. Neurological: Alert and oriented. Moving all four extremities easily and equally. Psychiatric: Normal affect. - Medical/Surgical History Hx Asthma: No Hx Chronic Respiratory Disease: No Hx Diabetes: No Hx Cardiac Disease: No Hx Renal Disease: No Hx Cirrhosis: No Hx Alcoholism: No Hx HIV/AIDS: No Hx Splenectomy or Spleen Trauma: No Other PMH: Metatstatic melanoma, shoulder surgery 2016,prostate procedure, L Uretal stent placement Kidney CA 05/03 - Social History Smoking Status: Never smoked Constitutional: Initial Vital Signs Temperature (C) 36.8 C 05/13/18 08:47 Heart Rate 78 05/13/18 08:47 Respiratory Rate 16 05/13/18 08:47 Blood Pressure 165/90 H 05/13/18 08:47 O2 Sat (%) 97 05/13/18 08:47 O2 Delivery Mode Room Air Allergies/Adverse Reactions: No Known Allergies Allergy (Verified 01/29/18 10:37) Home Medications: Medication Instructions Recorded [place] 5-325 Tablet 05/13/18 Medical Decision Making ED Course/Re-evaluation: I spoke with Interventional Radiology, Dr. Torres placed his nephrostomy tube and will add him to the IR schedule to have the tube changed today. IR will communicate with patient's urologist, Dr. Lyle Villafuerte. Patient remained stable while in the emergency department. He remained in the department until he was taken to interventional Radiology for tube change. From my standpoint, he will not need to return to the emergency department. I expect that he will be discharged from IR. No evidence of infection (urinary tract, pyelonephritis, cellulitis) at this point in time. No urinary retention. No reason to suspect additional tumor involvement. Patient was hypertensive in the emergency department. He is aware of this. He will have his blood pressure checked by either his oncologist or his primary care physician. Departure - Departure Disposition: Home, Routine, Self-Care Clinical Impression: Nephrostomy tube displaced Condition: Good Instructions: Nephrostomy Tube Insertion (DC) Referrals: SONG LLAMAS [Primary Care Provider] - As per Instructions Feliberto Villafuerte MD [Medical Doctor] - As per Instructions
[2018-05-13] MEDS ORDERED: IOPAMIDOL (ISOVUE-300) 100 ML BTL ONE (14:39)
== END 2018-05-13 14:25 | disposition home or self-care (01) ==
DX: T83.022A Displacement of nephrostomy catheter, initial encounter (principal); C43.9 Malignant melanoma of skin, unspecified; Y73.2 Prosthetic and other implants, materials and accessory gastroenterology and urology devices associated with adverse incidents
CPT/HCPCS: 75984; 99283; C1729; C1769; J1644; Q9967

== ENCOUNTER → 2018-05-26 | Day surgery (SDC) | payer OTHER ==
[~2018-05-26] MED LIST changes: +LIDOCAINE 1% 300 MG/30 ML SDV ONE
== END | disposition home or self-care (01) ==
LOC: FIMAGING 13:11
PROVIDERS: ATTEND Radiology Diagnostic Radiology
PROC: 0TP930Z Removal of Drainage Device from Ureter, Percutaneous Approach (ICD-10-PCS; principal; 2018-05-26)
PROC: BT1F1ZZ Fluoroscopy of Left Kidney, Ureter and Bladder using Low Osmolar Contrast (ICD-10-PCS; principal; 2018-05-26)
PROC: 0T9730Z Drainage of Left Ureter with Drainage Device, Percutaneous Approach (ICD-10-PCS; principal; 2018-05-26)
DX: N13.30 Unspecified hydronephrosis (principal)
CPT/HCPCS: 50382; 75984; C1729; C1769; Q9967

== ENCOUNTER → 2018-07-07 | Day surgery (SDC) | payer OTHER ==
[~2018-07-07] MED LIST changes: -LIDOCAINE 1% 300 MG/30 ML SDV ONE
[2018-07-07 10:49] VITALS: BP 147/91
--- NOTE | 2018-07-07 14:28 | PDRADPRE ---
Radiology History & Physical Indication for procedure: other (UPJ stricture; Routine PCNU check/change) Home medications: [place] 5-325 Tablet PRN 05/13/18 [Last Taken Unknown] Ativan 1 mg PO 06/27/18 [Last Taken Unknown] Allergies/Adverse Reactions: No Known Allergies Allergy (Verified 06/27/18 11:33) Mental status: A&Ox3 Heart exam: regular rate and rhythm Lungs exam: clear to auscultation Mallampati Score: Class 2
--- NOTE | 2018-07-07 14:29 | PDRADPN ---
Radiology Procedure Note Date of Procedure: 07/07/18 Radiologist: Ben Brewer Anesthesia: Local (Specify) Pre-op Diagnosis: UPJ stricture Post-op Diagnosis: UPJ stricture Indication: UPJ stricture Left, with history of encrustation ureteral stent Procedure: Routine PCNU check/change Finding(s): Encrustation of PCNU. Peristent high grade left UPJ stricture. New PCNU catheter placed. Inf/Abcess present in the surg proc area at time of surgery?: No
== END | disposition home or self-care (01) ==
LOC: FIMAGING 10:11
PROVIDERS: ATTEND Radiology Vascular & Interventional Radiology
DX: N13.0 Hydronephrosis with ureteropelvic junction obstruction (principal); T83.89XA Other specified complication of genitourinary prosthetic devices, implants and grafts, initial encounter
CPT/HCPCS: 50382; 75984; C1729; C1758; C1769; C1894; J0696; J1644; Q9967

== ENCOUNTER → 2018-07-25 | Day surgery (SDC) | payer OTHER | END | disposition home or self-care (01) | LOC: FIMAGING 10:54 | PROVIDERS: ATTEND Radiology Diagnostic Radiology | DX: T83.122A Displacement of indwelling ureteral stent, initial encounter (principal) | CPT/HCPCS: 50387; 75984; C1729; C1769; Q9967 ==

== ENCOUNTER → 2018-08-30 | Day surgery (SDC) | payer OTHER | END | disposition home or self-care (01) | LOC: FIMAGING 09:16 | PROVIDERS: ATTEND Specialist | PROC: 0T773DZ Dilation of Left Ureter with Intraluminal Device, Percutaneous Approach (ICD-10-PCS; principal; 2018-08-30) | PROC: 0TP530Z Removal of Drainage Device from Kidney, Percutaneous Approach (ICD-10-PCS; principal; 2018-08-30) | PROC: 0TP930Z Removal of Drainage Device from Ureter, Percutaneous Approach (ICD-10-PCS; principal; 2018-08-30) | PROC: 0T9130Z Drainage of Left Kidney with Drainage Device, Percutaneous Approach (ICD-10-PCS; principal; 2018-08-30) | DX: Z43.6 Encounter for attention to other artificial openings of urinary tract (principal); C79.19 Secondary malignant neoplasm of other urinary organs; Z85.820 Personal history of malignant melanoma of skin | CPT/HCPCS: 50387; 74178; 75984; C1729; C1769; Q9967 ==

== ENCOUNTER → 2018-09-26 | Day surgery (SDC) | payer OTHER | END | disposition home or self-care (01) | LOC: FIMAGING 10:32 | PROVIDERS: ATTEND Radiology Vascular & Interventional Radiology | PROC: 0T9730Z Drainage of Left Ureter with Drainage Device, Percutaneous Approach (ICD-10-PCS; principal; 2018-09-26) | PROC: BT171ZZ Fluoroscopy of Left Ureter using Low Osmolar Contrast (ICD-10-PCS; principal; 2018-09-26) | DX: Z43.6 Encounter for attention to other artificial openings of urinary tract (principal); N13.1 Hydronephrosis with ureteral stricture, not elsewhere classified; C79.19 Secondary malignant neoplasm of other urinary organs | CPT/HCPCS: 50387; C1758; C1769; C1773; Q9967 ==

== ENCOUNTER 2018-09-28 05:49 | Day surgery (SDC) | payer OTHER ==
--- NOTE | 2018-09-27 16:30 | GHP ---
[f rep st] PREOP HISTORY AND PHYSICAL ADMISSION DIAGNOSIS: Encrusted left ureteral stent. HISTORY OF PRESENT ILLNESS: This is a 67-year-old gentleman who has had melanoma with hydronephrosis on the left side and problems with the ureteral stents. He has most recently had a nephro stent placed, and they could not remove it, it was calcified in the bladder, so he is admitted for attempted laser lithotripsy of the stent in the bladder, and laser of the ureteral stent up the ureter, and then try to remove it percutaneously. Indication, complications, risks, and options had been discussed, and written and verbal consent was obtained. He is admitted for the above procedure. PAST MEDICAL HISTORY: He has had melanoma, metastatic melanoma, and surgery, vasectomy. MEDICATIONS: Cephalexin, lorazepam, [place], silymarin ALLERGIES: None. FAMILY HISTORY: Colon cancer. SOCIAL HISTORY: Alcohol consumption moderate. Former smoker. REVIEW OF SYSTEMS: Negative for cardiac, respiratory, GI, and endocrine. PHYSICAL EXAMINATION: VITAL SIGNS: Stable. CHEST: Clear. HEART: Regular rate and rhythm. ABDOMEN: Normal. No organomegaly, rebound, or guarding. EXTREMITIES: Lower extremities are normal. He is admitted for the above procedure. /[id number]/MODL MTDD
[2018-09-28] MEDS ORDERED: LR 1,000 ML IV ONE (06:14)
[2018-09-28] MEDS ORDERED: LIDOCAINE 2% JELLY 20 ML (UROJECT) ONE (06:22)
[2018-09-28] MEDS ORDERED: IOPAMIDOL (ISOVUE-M 300) 15 ML VIAL ONE (06:22)
--- NOTE | 2018-09-28 06:50 | PDANEPAE ---
ANE Past Medical History - Cardiovascular History Hx Hypertension: Yes Hx Arrhythmias: No Hx Chest Pain: No Hx Coronary Artery / Peripheral Vascular Disease: No Hx CHF / Valvular Disease: No Hx Palpitations: No - Pulmonary History Hx COPD: No Hx Asthma/Reactive Airway Disease: No Hx Recent Upper Respiratory Infection: No Hx Oxygen in Use at Home: No Hx Sleep Apnea: No - Endocrine History Hx Diabetes: No Hypothyroid: No Hyperthyroid: No Obesity: no - Cancer History Hx Cancer: Yes Cancer History Comment: metastatic melanoma - GI History GERD: no Hx Gastrointestinal Disorders: No - Chronic Pain History Chronic Pain: No - Surgical History Prior Surgeries: ureteral stents 01/29/18 ANE Review of Systems Review of Systems: - Exercise capacity Exercise capacity: >=4 METS ANE Patient History - Allergies Allergies/Adverse Reactions: No Known Allergies Allergy (Verified 09/27/18 19:30) - Home Medications Home Medications: [place] 5-325 Tablet 1 tab PO PRN PRN 05/13/18 [Last Taken 09/27/18] Ativan 1 mg PO DAILY PRN 06/27/18 [Last Taken 09/27/18] Dabrafenib Mesylate 150 mg PO BID 09/27/18 [Last Taken 09/28/18] Ibuprofen 1 - 2 tab PO PRN PRN 09/27/18 [Last Taken 09/27/18] Trametinib Dimethyl Sulfoxide 2 mg PO DAILY 09/27/18 [Last Taken 09/28/18] - NPO status NPO Since - Liquids (Date): 09/27/18 NPO Since - Solids (Date): 09/27/18 - Anes Hx Hx Anesthesia Complications (with details): awakens "angry and mean" - Smoking Hx Smoking Status: Former smoker Marijuana use: Yes - Alcohol Use Alcohol Use: Rarely - Family Anes Hx Family Anes Hx: neg - N/A ANE Labs/Vital Signs - Vital Signs Blood Pressure: 156/88 Heart Rate: 79 Respiratory Rate: 15 O2 Sat (%): 95 Height: 175.26 cm Weight: 63.503 kg ANE Physical Exam - Airway Neck exam: FROM Mallampati Score: Class 2 Mouth exam: normal dental/mouth exam - Pulmonary Pulmonary: no respiratory distress, no rales or rhonchi, clear to auscultation - Cardiovascular Cardiovascular: regular rate and rhythym, no murmur, rub, or gallop - ASA Status ASA Status: III ANE Anesthesia Plan Anesthesia Plan: general endotracheal anesthesia Total IV Anesthesia: No
[2018-09-28] MEDS ORDERED: VANCOMYCIN PHARMACY TO DOSE MISC ONE (06:56)
[2018-09-28] MEDS ORDERED: fentaNYL 100 MCG/2 ML INJ ONE ×2 (07:22→08:02)
[2018-09-28] MEDS ORDERED: PROPOFOL 200 MG/20 ML VIAL ONE (07:22)
[2018-09-28] MEDS ORDERED: ROCURONIUM 50 MG/5 ML VIAL ONE (07:26)
[2018-09-28] MEDS ORDERED: DEXAMETHASONE 4 MG/ML VIAL ONE (07:26)
[2018-09-28] MEDS ORDERED: VANCOMYCIN HCL/NORMAL SALINE 250 ML IV ONE (07:30)
[2018-09-28] MEDS ORDERED: LIDOCAINE 2% 2 ML INJ ONE ×2 (07:33)
[2018-09-28] MEDS ORDERED: PHENYLEPHRINE HCL 100 MCG/ML SYR IVP PRN (07:51)
[2018-09-28] MEDS ORDERED: LR 500 ML IV PRN (07:51)
[2018-09-28] MEDS ORDERED: PROMETHAZINE HCL 25 MG/ML INJ IVP PRN (07:51)
[2018-09-28] MEDS ORDERED: fentaNYL 100 MCG/2 ML INJ IVP PRN ×2 (07:51→09:12)
[2018-09-28] MEDS ORDERED: oxyCODONE IR 5 MG TAB PO PRN (07:51)
[2018-09-28] MEDS ORDERED: ONDANSETRON 4 MG/2 ML VIAL IVP PRN ×2 (07:51→11:09)
[2018-09-28] MEDS ORDERED: ACETAMINOPHEN 500 MG TAB PO PRN (07:51)
[2018-09-28] MEDS ORDERED: HYDROCODONE/APAP 5/325 TAB PO PRN (07:51)
[2018-09-28] MEDS ORDERED: NALOXONE HCL 0.4 MG/ML INJ IVP PRN ×2 (07:51→09:12)
[2018-09-28] MEDS ORDERED: GLYCOPYRROLATE 0.2 MG/1 ML VIAL ONE ×4 (08:19→08:20)
[2018-09-28] MEDS ORDERED: NEOSTIGMINE METHYLSULFATE 10 MG/10 ML MDV ONE (08:19)
[2018-09-28] MEDS ORDERED: LABETALOL HCL 5 MG/ML 20 ML MDV ONE (08:54)
[2018-09-28] MEDS: LABETALOL HCL 5 MG/ML 20 ML MDV IVP PRN ×2 (08:55→09:03)
--- NOTE | 2018-09-28 09:09 | POSTANESTH ---
Post Anesthetic Evaluation Cardiovascular Status: Similar to Pre-Op Cond, Tx Hyper/Hypo-tension Respiratory Status: Normal, Stable Level of Consciousness/Mental Status: Can Participate in Eval Pain Control: Adequate, Prn Tx Ordered Nausea/Vomiting Control: Adequate, Prn Tx Ordered Complications Possibly Related to Anesthesia: None Noted
[2018-09-28] MEDS ORDERED: FLUMAZENIL 0.5 MG/5 ML MDV IVP PRN (09:12)
[2018-09-28] MEDS ORDERED: ONDANSETRON 4 MG/2 ML VIAL IVP ONE (09:12)
[2018-09-28] MEDS ORDERED: MIDAZOLAM 2 MG/2 ML VIAL IVP PRN (09:12)
[2018-09-28] MEDS ORDERED: MEPERIDINE 25 MG/ML SYR IVP PRN (09:12)
[2018-09-28] MEDS ORDERED: NS 1,000 ML IV SCH (09:15)
[2018-09-28 10:05] LABS: INR 1.03 (0.83-1.16); PROTIME(PATIENT) 13.1 SEC (12.0-15.0)
--- NOTE | 2018-09-28 10:22 | GOP ---
[f rep st] OPERATIVE REPORT DATE OF OPERATION: 09/28/2018 SURGEON: Feliberto Villafuerte MD ANESTHESIA: General. ANESTHESIOLOGIST: Yazmin Lake DO. PREOPERATIVE DIAGNOSIS: Encrusted left ureteral stent and bladder stone. POSTOPERATIVE DIAGNOSIS: Encrusted left ureteral stent and bladder stone. PROCEDURE PERFORMED: Cystolitholapaxy and complex extraction of ureteral stent. FINDINGS: DESCRIPTION OF PROCEDURE: After undergoing general anesthesia, prepped and draped in normal sterile fashion, appropriate identifications, the scope was passed in the bladder and he had this large stone and encrusted stent curl, and that was lasered with holmium laser and at the end, I was able to gras p the stent and pull it out intact. I attempted to pass a wire, but the stent was occluded so I coul d not really pass a wire up, so a stent is out. His bladder was Ellik'd free of all chips, clots, an d stone chips and Uro-jet placed in the urethra. Guevara catheter placed and at the present time, I wi ll have Interventional Radiology assess him to try to put his antegrade stent back in. I will talk t o his about the issues. /[id number]/MODL
[2018-09-28] MEDS ORDERED: ACETAMINOPHEN 325 MG TAB PO PRN (11:09)
[2018-09-28 12:18] VITALS: BP 147/78
[2018-09-28] MEDS ORDERED: IOPAMIDOL (ISOVUE-300) 100 ML BTL ONE (13:45)
== END 2018-09-28 13:25 | disposition home or self-care (01) ==
LOC: FSGY 05:49
PROVIDERS: ATTEND Specialist
PROC: 0TFB8ZZ Fragmentation in Bladder, Via Natural or Artificial Opening Endoscopic (ICD-10-PCS; principal; 2018-09-28 07:15)
PROC: 0TP980Z Removal of Drainage Device from Ureter, Via Natural or Artificial Opening Endoscopic (ICD-10-PCS; principal; 2018-09-28 07:15)
PROC: 0T9430Z Drainage of Left Kidney Pelvis with Drainage Device, Percutaneous Approach (ICD-10-PCS; 2018-09-28 07:15)
PROC: 0TP930Z Removal of Drainage Device from Ureter, Percutaneous Approach (ICD-10-PCS; 2018-09-28 07:15)
PROC: BT141ZZ Fluoroscopy of Kidneys, Ureters and Bladder using Low Osmolar Contrast (ICD-10-PCS; 2018-09-28 07:15)
DX: N13.1 Hydronephrosis with ureteral stricture, not elsewhere classified (principal); Z85.820 Personal history of malignant melanoma of skin
CPT/HCPCS: 50387; 52315; 52317; 75984; 99152; C1729; C1758; C1769; J1100; J2250; J2310; J2704; J3010; J3370; Q9967

== ENCOUNTER 2018-10-19 09:18 | Day surgery (SDC) | payer OTHER | END 2018-10-19 13:00 | disposition home or self-care (01) | LOC: FIMAGING 09:18 ==